=== PATIENT | female | born 1975 | race Caucasian/White ===

== ENCOUNTER → 2016-11-14 | Outpatient (CLI) | payer BC ==
[~2016-11-14] MED LIST: ACETAMINOOPHEN-1 TAB PO; FLEXERIL10 MG PO; HYDROCODON-ACE1 EAC5 PO; MACROBID100 M1 PO; MOTRIN600 MG PO; NAPROSYN500 MG PO; VOLTAREN75 MG PO; ZANAFLEX4 M1 PO
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
== END | disposition home or self-care (01) ==
LOC: CMRI 13:41
DX: M50.20 Other cervical disc displacement, unspecified cervical region (principal); M47.812 Spondylosis without myelopathy or radiculopathy, cervical region; M48.02 Spinal stenosis, cervical region
CPT/HCPCS: 72141